=== PATIENT | male | born 1995 | race Caucasian/White ===

== ENCOUNTER 2020-06-14 09:05 | Emergency (ER) | payer MEDICAID ==
[~2020-06-14] VITALS: Ht 188 cm; Wt 127.0 kg
--- NOTE | 2020-06-14 09:54 | NUR ---
Patient discharged to home in stable condition. Written and verbal after care instructions given. Patient verbalizes understanding of instructions. Stressed follow up or return to ER for worsening s/s.
== END 2020-06-14 09:54 | disposition home or self-care (01) ==
LOC: ER 09:05
DX: S93.402A Sprain of unspecified ligament of left ankle, initial encounter (principal); X58.XXXA Exposure to other specified factors, initial encounter; Y92.89 Other specified places as the place of occurrence of the external cause
CPT/HCPCS: 73610; 73630; A4663